=== PATIENT | male | born 1970 | race Caucasian/White ===

== ENCOUNTER 2021-11-19 20:55 | Observation (INO) | payer BC, SELFPAY ==
[2021-11-19] VITALS (7 sets, daily range): BP systolic 145–172; BP diastolic 95–107; PULSE 78–87; RESP 15–17; TEMP 36.6; O2SAT 98–100; BMI 28.0; BMI 27.2
--- NOTE | 2021-11-19 21:20 | EKG12_ITS ---
Test Reason : CHEST PAIN Blood Pressure : / mmHG Vent. Rate : 082 BPM Atrial Rate : 082 BPM P-R Int : 136 ms QRS Dur : 100 ms QT Int : 366 ms P-R-T Axes : 051 033 009 degrees QTc Int : 427 ms Sinus rhythm with Premature atrial complexes Nonspecific ST abnormality Abnormal ECG Confirmed by CAMDEN LAMA, CHA ([id number]), publication editor ANN CHENG ([id number]) on 11/22/2021 10:35:44 AM Referred By: CRYSTAL Confirmed By:CHA HANNAH MD
--- NOTE | 2021-11-19 21:22 | ED.VIS.CHEST ---
HPI History of Present Illness Chief Complaint: Chest Pain Informant: patient and EMS Narrative Narrative: Brought in by EMS for worsening chest tightness burning sensation this evening. Been having intermittent symptoms for the past 5 days. He works with heavy lifting he noticed symptoms would come with just 3-4 times a day lasting 5 to 10 minutes improved with rest. This evening noted some dyspnea no nausea or diaphoresis. States burning sensations down his left arm. 1 pack/day smoker. Is on medicines for glaucoma. He denies hypertension, diabetes, hypercholesterolemia. Denies family history of MIs at a young age. No history of stress test in the past. EMS gave aspirin 180 of Brilinta and gave 1 nitroglycerin he states the nitroglycerin did help with his symptoms. On exam he states symptoms are mildly returning. Prior Similar Symptoms: No PFSH PFSH Medical History Secondary glaucoma Home Medications brimonidine 1 drp LEFT EYE BID 11/19/21 [History Last Taken Unknown] timolol maleate 1 drp LEFT EYE BID 11/19/21 [History Last Taken Unknown] Allergy/AdvReac Type Severity Reaction Status Date / Time No Known Allergies Allergy Verified 11/19/21 20:59 Family History (Updated 11/19/21 @ 23:[address] Ronnie Leija MD) Father Cancer Breast cancer Surgical History Hx of artificial lens replacement Social History Smoking Status: Current every day smoker tobacco type: cigarettes ROS ROS ED Constitutional Constitutional ED: Denies chills, fever(s) or sweats Eyes Eyes: Denies change in vision ENT ENT ED: Denies dysphagia or sore throat Cardiovascular Cardiovascular: Reports chest pain; Denies leg edema, palpitations or racing heartbeat Respiratory/Chest Respiratory/Chest: Reports dyspnea; Denies cough or dyspnea on exertion Gastrointestinal Gastrointestinal: Denies abdominal pain, diarrhea, nausea or vomiting Genitourinary Genitourinary ED: Denies dysuria, hematuria or urinary frequency Musculoskeletal Musculoskeletal: Denies back pain, extremity pain or neck pain Integumentary Denies rash or wounds Neurologic Neurologic: Denies headache(s), paresthesias or weakness EXAM Physical Exam Const Vital Signs: 11/19/21 20:56 11/19/21 21:02 11/19/21 21:24 Temperature 97.9 F Temperature Source Oral Pulse Rate 82 Respiratory Rate 17 Blood Pressure 172/95 H Blood Pressure Mean 120 Pulse Ox 98 Oxygen Delivery Method Room Air Room Air 11/19/21 21:31 11/19/21 22:12 11/19/21 22:25 Temperature 98 F Temperature Source Temporal Pulse Rate 78 80 84 Respiratory Rate 17 15 Blood Pressure 164/107 H 145/102 H 157/97 H Blood Pressure Mean 116 117 Pulse Ox 98 99 Oxygen Delivery Method Room Air Room Air Positive well nourished and well developed General Appearance ED: well developed and NAD HEENT Reports moist mucous membranes normocephalic and atraumatic Eyes PERRL, EOMs intact bilaterally and conjunctivae normal General Eye ED: Yes normal appearance of both eyes Neck no lymphadenopathy and supple General: Negative for tenderness Chest Wall Chest: Negative for tenderness Resp normal respiratory effort and normal air movement Effort and Inspection: symmetric chest movement; Negative for respiratory distress Cardio regular rate, regular rhythm and no murmurs Peripheral Pulses: pulses 2+ throughout GI normal to inspection, nondistended, normoactive bowel sounds and non-tender Palpation: Negative for guarding or rebound tenderness present Back/Spine no CVA tenderness and no thoracic nor lumbar tenderness Extremity normal to inspection General Extremety ED: Negative for edema or tenderness General Extremity: Negative for edema Neuro oriented x3 and no sensory deficits noted Sensorium / Orientation: awake and alert Skin no rashes or lesions noted and no wounds Heart Score History: Highly Suspicious ECG: Nonspecific Repolarization Age: >45 - <65 years Risk Factors: 1 or 2 Risk Factors Troponin: </= Normal Limit Score: 5 MDM MDM MDM Narrative Medical decision making narrative: Patient presenting with concerning story for angina. EKG nonspecific ST changes inferior lateral leads there is no elevations. Nitropaste was placed. He is already given aspirin Brilinta have by EMS. Cardiac work-up negative first troponin at 23. Repeat pending. Chest x-ray reviewed by myself and read by radiology shows no acute process. I spoke with on-call photographic process screen maker Dr. Ritter, would like Lovenox started he will be monitored in hospital for cardoso heart catheterization on Monday if remained stable. Sooner if needed. Patient was updated. Hospitalist Dr. leija contacted and will admit to PCU. Lab Data Attestation: I reviewed the patient's lab results. Labs: Laboratory Results - last 24 hr 11/19/21 11/19/21 11/19/21 21:05 21:05 21:05 WBC 7.6 RBC 5.03 Hgb 15.9 Hct 46.3 MCV 92.0 MCH 31.6 MCHC 34.3 RDW Std Deviation 47.8 H RDW Coeff of Gris 14.1 Plt Count 227 MPV 10.0 Immature Gran % (Auto) 0.300 Neut % (Auto) 61.9 Lymph % (Auto) 28.6 Sunflower % (Auto) 7.5 Eos % (Auto) 1.3 Baso % (Auto) 0.4 Absolute Neuts (auto) 4.7 Absolute Lymphs (auto) 2.16 Nucleated RBC % 0 PT 12.6 INR 1.0 APTT 34.5 Sodium 135 L Potassium 3.9 Chloride 104 Carbon Dioxide 28.0 Anion Gap 3 L BUN 8 Creatinine 0.90 Estim Creat Clear Calc 89.77 Est GFR (MDRD) Af Amer 114 Est GFR (MDRD) Non-Af 94 BUN/Creatinine Ratio 8.9 L Glucose 97 Calcium 9.9 Troponin I High Sens 23 Radiography Chest X-Ray - ED: 1 View, Read by ED Physician and Read by Radiologist Diagnostic Testing: Clinical Impression(s) from Imaging Studies Chest X-Ray 11/19/21 21:25 IMPRESSION: No radiographic evidence of acute cardiopulmonary disease. at 2151 Reported and signed by: Josh Lott MD Electronically Signed: Josh Lott MD at 21:50 EST , EKG Initial EKG: Attestation: I personally reviewed and interpreted this EKG as follows: Comments: Sinus rate of 82, very nonspecific ST depression inferior lateral leads. Minimal no ST elevations. T wave inversion in leads III. Discharge Plan Triage Chief Complaint: Chest Pain ED Provider: Neil Uribe Dx/Rx/DC Orders Clinical Impression: Angina of effort, Chest pain Primary Care Provider: Care Physician,No Primary Disposition Disposition: Home, Self Care Discharge Date/Time: 11/19/21 23:04
--- NOTE | 2021-11-19 21:25 | RAD_ITS ---
EXAM: XR CHEST, 1 VIEW : 1970 CLINICAL INDICATION: chest pain TECHNIQUE: Frontal view of the chest. This report was created using [employer] report generation technology. COMPARISON: None. FINDINGS: LUNGS AND PLEURAL SPACES: Unremarkable. No consolidation or edema. No pneumothorax. No effusion. HEART: Unremarkable. Cardiac silhouette not enlarged. MEDIASTINUM: Central airways and mediastinal contour are unremarkable. BONES/JOINTS: Unremarkable. SOFT TISSUES: Unremarkable. RAD/Chest 1 View (Portable) IMPRESSION: No radiographic evidence of acute cardiopulmonary disease. at 2151 Reported and signed by: Josh Lott MD Electronically Signed: Josh Lott MD at 21:50 EST ,
[2021-11-19 21:27] LABS: Absolute Lymphocyte Count 2.16 X10^3/uL (0.83-4.51); Absolute Neutrophil Count 4.7 X10^3/uL (2.0-7.7); Basophil# 0.03 X10^3/uL; Basophil% 0.4 % (0-1); Eosinophils% 1.3 % (0-5); Hematocrit 46.3 % (40-54); Hemoglobin 15.9 g/dL (13.0-16.5); Lymphocyte # 2.16 X10^3/ul (0.83-4.51); Lymphocyte % 28.6 % (19-41); Mean Corp Hgb Conc 34.3 g/dL (32-36); Mean Corpuscular Hgb 31.6 pg (27.0-32.0); Monocyte# 0.57 X10^3/uL; Monocyte% 7.5 % (0-10); NRBC Flagged by Analyzer 0 % (0-5); Neutrophil # 4.67 X10^3/uL (2.7-7.7); Neutrophil % 61.9 % (47-70); Platelet Count 227 K/mm3 (150-450); RBC Distribution Width CV 14.1 % (11.6-14.6); RBC Distribution Width SD 47.8 fl (35.1-43.9); Red Blood Count 5.03 M/mm3 (4.6-6.2); White Blood Count 7.6 K/mm3 (4.4-11.0)
[2021-11-19] MEDS: Nitroglycerin Oint 1 INCH PACKET TRANSDERM. (21:31)
[2021-11-19 21:35] LABS: Prothrombin Time (Protime)PT. 12.6 SECONDS (11.7-14.9)
[2021-11-19 21:36] LABS: Partial Thromboplast Time 34.5 Seconds (24.1-36.2)
[2021-11-19 21:44] LABS: Anion Gap 3 (5-15); BUN 8 mg/dL (7-18); BUN/Creat Ratio 8.9 RATIO (10-20); Calcium,Total 9.9 mg/dL (8.5-10.1); Chloride 104 mmol/L (98-107); EST Glomerular Filtration Rate 94 mL/min (>60); Est Glom Filt Rate - Afr Amer 114 mL/min (>60); Estimated Creatinine Clearance 89.77 ml/min; Glucose 97 mg/dL (74-106); Potassium 3.9 mmol/L (3.5-5.1); Sodium Level 135 mmol/L (136-145); Troponin-I HS 23 pg/mL (3.0-78.0)
[2021-11-19] MEDS: Enoxaparin 80 MG/0.8 ML Syringe SC (22:13)
--- NOTE | 2021-11-19 23:06 | ECHOCS_ITS ---
Reason For Study: Chest Pain Procedure This was a 2D Doppler, Color Flow transthoracic echocardiogram. Contrast injection was performed. Exam performed portable in patient room. Left Ventricle Normal LV size. Left ventricular systolic function is normal. The estimated ejection fraction is 60 %. Normal diastology for age. No regional wall motion abnormalities noted. Right Ventricle Normal RV size. Normal systolic function. Atria Normal left atrium. Normal right atrium. Mitral Valve Normal mitral valve. Tricuspid Valve Normal tricuspid valve. Aortic Valve Normal aortic valve. Trisinus/trileaflet aortic valve. Pulmonic Valve Normal pulmonic valve. Great Vessels Normal aortic root. The pulmonary artery is normal size. Normal inferior vena cava. Pericardium/Pleural No pericardial effusion. Medication Diluted definity 2ml given slow IV push to enhance endocardial definition. MMode/2D Measurements & Calculations LVIDd: 4.8 cm IVSd: 1.0 cm Ao root diam: 2.8 cm LVIDs: 3.4 cm LVPWd: 0.99 cm RVDd: 2.7 cm FS: 28.1 % LAV(MOD-bp): 24.1 ml LVAd ap4: 27.9 cm2 SV(MOD-sp4): 43.7 ml LAV(MOD-bp) Indexed: 12.5 ml/m2 LVLd ap4: 7.7 cm LAV(MOD-sp2): 27.8 ml EDV(MOD-sp4): 84.0 ml LAV(MOD-sp4): 18.9 ml EDV(sp4-el): 86.2 ml LVAs ap4: 17.7 cm2 LVLs ap4: 6.7 cm ESV(MOD-sp4): 40.3 ml ESV(sp4-el): 39.4 ml EF(MOD-sp4): 52.0 % EF(sp4-el): 54.3 % SV(sp4-el): 46.9 ml LA A4 area: 10.7 cm2 LA dimension(2D): 2.6 cm RA A4 area: 9.8 cm2 Doppler Measurements & Calculations MV E max shayne: 69.8 cm/sec Lat Peak E' Shayne: 10.3 cm/sec Med Peak E' Shayne: 8.6 cm/sec MV A max shayne: 49.8 cm/sec E/E' lat: 6.8 E/E' med: 8.1 MV E/A: 1.4 Ao V2 max: 154.7 cm/sec LV V1 max: 114.4 cm/sec PA V2 max: 78.3 cm/sec Ao max P.6 mmHg LV V1 max P.2 mmHg Ao V2 mean: 109.4 cm/sec Ao mean P.2 mmHg Ao V2 VTI: 27.4 cm ECHO/Echo Complete W/ Contrast Interpretation Summary Normal LV size. Left ventricular systolic function is normal. The estimated ejection fraction is 60 %. Normal diastology for age. Contrast injection was performed. Ordering Physician: Ronnie Leija Performed By: Shelly Crawford, GREGORIO, RVT
--- NOTE | 2021-11-19 23:06 | HP.PCM.HOS_ITS ---
HPI - General General Date of Admission: 11/19/21 HPI Narrative ADRIANA MITCHELL, is a 51 M who presents to the hospital with intermittent chest pain. He states that he would get this substernal chest pressure and pain that would occur with activity and then when he went stop the activity after about 5 to 10 minutes the pain would resolve. He presented to the hospital because it is also now started to have some chest pain at rest. He does not see a doctor and takes no medications other than for glaucoma. In the ER his EKG was nonischemic and troponins were normal. The case was discussed with cardiology who felt that he would be a candidate for heart cath on Monday [facility] Medical History Secondary glaucoma Home Medications brimonidine 1 drp LEFT EYE BID 11/19/21 [History Last Taken Unknown] timolol maleate 1 drp LEFT EYE BID 11/19/21 [History Last Taken Unknown] Allergy/AdvReac Type Severity Reaction Status Date / Time No Known Allergies Allergy Verified 11/19/21 20:59 Family History (Updated 11/19/21 @ 23:[address] Ronnie Leija MD) Father Cancer Breast cancer Surgical History Hx of artificial lens replacement Social History Smoking Status: Current every day smoker tobacco type: cigarettes ROS Constitutional Constitutional: Denies chills, fatigue, fever(s) or malaise Eyes Eyes: Denies blurry vision ENT HEENT: Denies headache(s) or nasal discharge Cardiovascular Cardiovascular: Reports chest pain; Denies dyspnea on exertion or syncope Respiratory/Chest Respiratory/Chest: Denies cough, shortness of breath at rest or shortness of breath with exertion Gastrointestinal Gastrointestinal: Denies constipation, diarrhea, nausea or vomiting Genitourinary Genitourinary: Denies dysuria Neurologic Neurologic: Denies focal weakness, numbness or tremor(s) Psychiatric Psychiatric: Denies anxiety or depression Vital Signs Vital Signs Vital Signs: 11/19/21 20:56 11/19/21 21:02 11/19/21 21:24 Temperature 97.9 F Temperature Source Oral Pulse Rate 82 Respiratory Rate 17 Blood Pressure 172/95 H Blood Pressure Mean 120 Pulse Ox 98 Oxygen Delivery Method Room Air Room Air 11/19/21 21:31 11/19/21 22:12 11/19/21 22:25 Temperature 98 F Temperature Source Temporal Pulse Rate 78 80 84 Respiratory Rate 17 15 Blood Pressure 164/107 H 145/102 H 157/97 H Blood Pressure Mean 116 117 Pulse Ox 98 99 Oxygen Delivery Method Room Air Room Air Weight Weight: 178 lb 12.718 oz Body Mass Index (BMI) 28.0 Physical Exam Const alert, oriented x3 and no apparent distress General Appearance: cooperative HEENT normocephalic and moist oral mucous membranes Eyes PERRL, EOMs intact bilaterally and conjunctivae normal Neck supple and no JVD Resp normal respiratory effort, no retractions, no use of accessory muscles and clear to auscultation bilaterally Auscultation: Negative for crackles, rales, rhonchi or wheezes Cardio regular rate, regular rhythm, S1 normal heart sound, S2 normal heart sound and no murmurs GI soft to palpation, non-tender and non-distended; Negative for hepatosplenomegaly Extremity no clubbing, cyanosis or edema Skin no rashes or lesions noted Neuro no focal motor deficits and no sensory deficits noted Psych affect normal Appearance: appropriate Results Lab / Micro Data Result Diagrams: 11/19/21 21:05 11/19/21 21:05 Labs: Laboratory Results - last 24 hr 11/19/21 21:05: WBC 7.6, RBC 5.03, Hgb 15.9, Hct 46.3, MCV 92.0, MCH 31.6, MCHC 34.3, RDW Std Deviation 47.8 H, RDW Coeff of Gris 14.1, Plt Count 227, MPV 10.0, Immature Gran % (Auto) 0.300, Neut % (Auto) 61.9, Lymph % (Auto) 28.6, [place] % (Auto) 7.5, Eos % (Auto) 1.3, Baso % (Auto) 0.4, Absolute Neuts (auto) 4.7, Absolute Lymphs (auto) 2.16, Nucleated RBC % 0 11/19/21 21:05: Sodium 135 L, Potassium 3.9, Chloride 104, Carbon Dioxide 28.0, Anion Gap 3 L, BUN 8, Creatinine 0.90, Estim Creat Clear Calc 89.77, Est GFR (MDRD) Af Amer 114, Est GFR (MDRD) Non-Af 94, BUN/Creatinine Ratio 8.9 L, Glucose 97, Calcium 9.9, Troponin I High Sens 23 11/19/21 21:05: PT 12.6, INR 1.0, APTT 34.5 Radiology Impression Chest X-Ray 11/19/21 21:25 IMPRESSION: No radiographic evidence of acute cardiopulmonary disease. at 2151 Reported and signed by: Josh Lott MD Electronically Signed: Josh Lott MD at 21:50 EST , Assessment & Plan Assessment/Plan (1) Chest pain: PLAN: 1. Chest pain ?We will start him on Coreg and lisinopril for his blood pressure ?We will start him on Lipitor ?Consult cardiology for heart cath ?Therapeutic Lovenox twice daily ?We will give him a nicotine patch for his tobacco use, he smokes about a pack a day, cessation was discussed ?We will obtain serial troponins and an echo in the morning ?Lipid panel in the morning 2. Glaucoma ?Stable ?Continue with his home meds DVT: Therapeutic Lovenox Charges/Coding Visit Charges OBSV E&M: 34340 Initial observation care L2
[2021-11-19 23:56] LABS: Troponin-I HS 25 pg/mL (3.0-78.0)
[2021-11-20] VITALS (11 sets, daily range): BP systolic 95–122; BP diastolic 62–84; PULSE 65–80; RESP 16–18; TEMP 36.3–36.8; O2SAT 95–98
[2021-11-20 03:41] LABS: Absolute Lymphocyte Count 2.68 X10^3/uL (0.83-4.51); Absolute Neutrophil Count 3.2 X10^3/uL (2.0-7.7); Basophil# 0.04 X10^3/uL; Basophil% 0.6 % (0-1); Eosinophil# 0.15 X10^3/uL; Eosinophils% 2.2 % (0-5); Hematocrit 45.1 % (40-54); Hemoglobin 15.4 g/dL (13.0-16.5); Lymphocyte # 2.68 X10^3/ul (0.83-4.51); Lymphocyte % 39.9 % (19-41); Mean Corp Hgb Conc 34.1 g/dL (32-36); Mean Corpuscular Hgb 31.2 pg (27.0-32.0); Mean Corpuscular Volume 91.5 fL (80-94); Mean Platelet Vol. 9.7 fl (6.2-12.0); Monocyte# 0.59 X10^3/uL; Monocyte% 8.8 % (0-10); NRBC Flagged by Analyzer 0 % (0-5); Neutrophil # 3.24 X10^3/uL (2.7-7.7); Neutrophil % 48.4 % (47-70); Platelet Count 224 K/mm3 (150-450); RBC Distribution Width SD 47.5 fl (35.1-43.9); Red Blood Count 4.93 M/mm3 (4.6-6.2); White Blood Count 6.7 K/mm3 (4.4-11.0)
[2021-11-20 04:01] LABS: Troponin-I HS 27 pg/mL (3.0-78.0)
[2021-11-20 05:37] LABS: Anion Gap 5 (5-15); BUN 10 mg/dL (7-18); BUN/Creat Ratio 12.3 RATIO (10-20); Calcium,Total 8.8 mg/dL (8.5-10.1); Chloride 106 mmol/L (98-107); Cholesterol 181 mg/dL (200); Creatinine, Serum 0.81 mg/dL (0.70-1.30); EST Glomerular Filtration Rate 106 mL/min (>60); Est Glom Filt Rate - Afr Amer 129 mL/min (>60); Estimated Creatinine Clearance 99.74 ml/min; Glucose 112 mg/dL (74-106); High Density Lipoprotein 44 mg/dL; Potassium 3.7 mmol/L (3.5-5.1); Sodium Level 137 mmol/L (136-145); Triglycerides 164 mg/dL; Very Low Density Lipoprotein 33 mg/dL (5-40)
[2021-11-20] MEDS: BRIMONIDINE 0.2% 5ML BOTTLE 1 DRP LEFT EYE ×2 (08:45→22:49)
[2021-11-20] MEDS: Carvedilol 3.125 MG TABLET PO ×2 (08:45→22:51)
[2021-11-20] MEDS: Lisinopril 5 MG Tablet PO (08:45)
[2021-11-20] MEDS: Timolol 0.5% 5ML OPTH.BTL 1 DRP LEFT EYE ×2 (08:45→22:49)
[2021-11-20] MEDS: Enoxaparin 80 MG/0.8 ML Syringe SC ×2 (08:45→22:51)
--- NOTE | 2021-11-20 08:55 | PCM.CONS.C ---
Assessment & Plan Assessment/Plan (1) Chest pain: PLAN: Patient presents with chest discomfort. It is suggestive of new onset angina with crescendo pattern. Though his cardiac enzymes are negative I am concerned about the above and would suggest that we pursue a left heart catheterization. Depending on the findings further recommendations will be made. In the meantime we will continue aspirin Start statin Low-dose beta-shania The risk benefits alternatives been explained to him he understands and agrees to proceed. HPI Consult Data Date of Consult: 11/20/21 HPI Narrative HPI Narrative: ADRIANA MITCHELL, is a 51 M who presents to the emergency room with complaints of chest discomfort described as a heaviness. He says that it occurred with activity and went away with rest. There was no dizziness or nausea or diaphoresis associated with it. There was however some tingling noted of the left arm. He presented to the emergency room was evaluated his initial cardiac enzymes were noted to be normal. Cardiology was called for further evaluation and management. He has been pain-free since being admitted. [facility] Medical History Secondary glaucoma Home Medications brimonidine 1 drp LEFT EYE BID 11/19/21 [History Last Taken Unknown] timolol maleate 1 drp LEFT EYE BID 11/19/21 [History Last Taken Unknown] Allergy/AdvReac Type Severity Reaction Status Date / Time No Known Allergies Allergy Verified 11/19/21 20:59 Family History Father Cancer Breast cancer Surgical History Hx of artificial lens replacement Social History Smoking Status: Current every day smoker tobacco type: cigarettes ROS Constitutional Constitutional: Denies fever(s) or weight loss Eyes Eyes: Reports systems reviewed and no addt'l complaints, except as documented ENT HEENT: Reports systems reviewed and no addt'l complaints, except as documented Cardiovascular Cardiovascular: Denies chest pain at rest, chest pain with activity, dyspnea at rest, dyspnea on exertion, edema, palpitations or paroxysmal nocturnal dyspnea Respiratory/Chest Respiratory/Chest: Denies dyspnea on exertion, productive cough, shortness of breath at rest or shortness of breath with exertion Gastrointestinal Gastrointestinal: Denies change in bowel habits, nausea, vomiting or weight changes Genitourinary Genitourinary: Denies difficulty urinating Musculoskeletal Musculoskeletal: Denies joint stiffness or muscle weakness Integumentary Integumentary: Denies lesions Neurologic Neurologic: Denies dizziness or syncope Psychiatric Psychiatric: Denies anxiety Endocrine Endocrinology: Denies excessive sweating or fatigue Hematologic/Lymphatic Hematologic/Lymphatic: Denies anemia Allergic/Immunologic Allergic/Immunologic: Denies seasonal rhinorrhea Physical Exam Const alert, oriented x3 and no apparent distress General Appearance: cooperative HEENT hearing grossly normal bilaterally Head and Scalp: atraumatic Eyes EOMs intact bilaterally Neck General: normal visual inspection Chest inspection of chest normal and palpation of chest normal Resp normal respiratory effort Auscultation: clear to auscultation bilaterally Cardio regular rate, regular rhythm, S1 normal heart sound and S2 normal heart sound Jugular Venous Distention: JVD GI normal to inspection, nondistended, normoactive bowel sounds Extremity normal capillary refill and no pedal edema Peripheral Pulses: Yes pulses 2+ throughout and femoral pulses present Skin no rashes or lesions noted Neuro oriented x3 and CN's II-XII intact bilaterally Psych Appearance: grossly normal and appropriate Risk Stratification Risk Stratification Applicable: Yes Age >/= 65: No >/= 3 CAD Risk Factors (HTN, HLD, DM, family hx of CAD, or current smoker): No Aspirin Use in the Past 7 Days: No Severe Angina (>/= episodes in 24 hours): No EKG ST Changes >/= 0.5mm: No Positive Cardiac Marker: No PHILIP Risk Stratification Score: 0 PHILIP % Risk: 5% Risk Objective Data Vital Signs: Vital Signs Temp Pulse Resp BP Pulse Ox 98.2 F 80 16 122/79 H 96 11/20/21 08:42 11/20/21 08:42 11/20/21 08:42 11/20/21 08:42 11/20/21 08:42 Oxygen Delivery Method Room Air Weight: 174 lb 2.643 oz Body Mass Index (BMI) 27.2 Lab / Micro Data Result Diagrams: 11/20/21 03:34 11/20/21 03:34 Labs: Laboratory Results - last 24 hr 11/19/21 21:05: WBC 7.6, RBC 5.03, Hgb 15.9, Hct 46.3, MCV 92.0, MCH 31.6, MCHC 34.3, RDW Std Deviation 47.8 H, RDW Coeff of Gris 14.1, Plt Count 227, MPV 10.0, Immature Gran % (Auto) 0.300, Neut % (Auto) 61.9, Lymph % (Auto) 28.6, [place] % (Auto) 7.5, Eos % (Auto) 1.3, Baso % (Auto) 0.4, Absolute Neuts (auto) 4.7, Absolute Lymphs (auto) 2.16, Nucleated RBC % 0 11/19/21 21:05: Sodium 135 L, Potassium 3.9, Chloride 104, Carbon Dioxide 28.0, Anion Gap 3 L, BUN 8, Creatinine 0.90, Estim Creat Clear Calc 89.77, Est GFR (MDRD) Af Amer 114, Est GFR (MDRD) Non-Af 94, BUN/Creatinine Ratio 8.9 L, Glucose 97, Calcium 9.9, Troponin I High Sens 23 11/19/21 21:05: PT 12.6, INR 1.0, APTT 34.5 11/19/21 23:20: Troponin I High Sens 25 11/20/21 03:34: WBC 6.7, RBC 4.93, Hgb 15.4, Hct 45.1, MCV 91.5, MCH 31.2, MCHC 34.1, RDW Std Deviation 47.5 H, RDW Coeff of Gris 14.0, Plt Count 224, MPV 9.7, Immature Gran % (Auto) 0.100, Neut % (Auto) 48.4, Lymph % (Auto) 39.9, [place] % (Auto) 8.8, Eos % (Auto) 2.2, Baso % (Auto) 0.6, Absolute Neuts (auto) 3.2, Absolute Lymphs (auto) 2.68, Nucleated RBC % 0 11/20/21 03:34: Sodium 137, Potassium 3.7, Chloride 106, Carbon Dioxide 26.0, Anion Gap 5, BUN 10, Creatinine 0.81, Estim Creat Clear Calc 99.74, Est GFR (MDRD) Af Amer 129, Est GFR (MDRD) Non-Af 106, BUN/Creatinine Ratio 12.3, Glucose 112 H, Calcium 8.8, Triglycerides 164, Cholesterol 181, LDL Cholesterol 104, VLDL Cholesterol 33, HDL Cholesterol 44 11/20/21 03:34: Troponin I High Sens 27 Cardiology Labs/Tests 11/19/21 21:05: WBC 7.6, RBC 5.03, Hgb 15.9, Hct 46.3, MCV 92.0, MCH 31.6, MCHC 34.3, Plt Count 227, MPV 10.0, Immature Gran % (Auto) 0.300, Neut % (Auto) 61.9, Lymph % (Auto) 28.6, [place] % (Auto) 7.5, Eos % (Auto) 1.3, Baso % (Auto) 0.4, Absolute Neuts (auto) 4.7, Nucleated RBC % 0 11/19/21 21:05: Sodium 135 L, Potassium 3.9, Chloride 104, Carbon Dioxide 28.0, Anion Gap 3 L, BUN 8, Creatinine 0.90, Est GFR (MDRD) Af Amer 114, Est GFR (MDRD) Non-Af 94, BUN/Creatinine Ratio 8.9 L, Glucose 97, Calcium 9.9 11/19/21 21:05: PT 12.6, INR 1.0, APTT 34.5 11/20/21 03:34: WBC 6.7, RBC 4.93, Hgb 15.4, Hct 45.1, MCV 91.5, MCH 31.2, MCHC 34.1, Plt Count 224, MPV 9.7, Immature Gran % (Auto) 0.100, Neut % (Auto) 48.4, Lymph % (Auto) 39.9, [place] % (Auto) 8.8, Eos % (Auto) 2.2, Baso % (Auto) 0.6, Absolute Neuts (auto) 3.2, Nucleated RBC % 0 11/20/21 03:34: Sodium 137, Potassium 3.7, Chloride 106, Carbon Dioxide 26.0, Anion Gap 5, BUN 10, Creatinine 0.81, Est GFR (MDRD) Af Amer 129, Est GFR (MDRD) Non-Af 106, BUN/Creatinine Ratio 12.3, Glucose 112 H, Calcium 8.8, Triglycerides 164, Cholesterol 181, LDL Cholesterol 104, VLDL Cholesterol 33, HDL Cholesterol 44 Rhythm: EKG: ECHO: Stress Test: Cardiac Cath: PCI: CT Surgery: Holter monitor: EPS: PPM: CXR: Chest CT Scan: Radiography Diagnostic Testing: Radiology Impression Chest X-Ray 11/19/21 21:25 IMPRESSION: No radiographic evidence of acute cardiopulmonary disease. at 2151 Reported and signed by: Josh Lott MD Electronically Signed: Josh Lott MD at 21:50 EST ,
[2021-11-20] MEDS: Nitroglycerin (INPATIENT USE) 0.4 MG TAB.SUBL SL (13:20)
--- NOTE | 2021-11-20 13:21 | EKG12_ITS ---
Test Reason : AM EKG Blood Pressure : / mmHG Vent. Rate : 057 BPM Atrial Rate : 057 BPM P-R Int : 140 ms QRS Dur : 094 ms QT Int : 400 ms P-R-T Axes : 055 046 011 degrees QTc Int : 389 ms Sinus bradycardia Otherwise normal ECG When compared with ECG of 20-NOV-2021 13:23, MANUAL COMPARISON REQUIRED, DATA IS UNCONFIRMED Confirmed by CAMDEN LAMA, CHA ([id number]), editor dictionary ANN CHENG ([id number]) on 11/22/2021 2:25:56 PM Referred By: ROSALIE Confirmed By:CHA HANNAH MD
--- NOTE | 2021-11-20 15:49 | CASEMGMT ---
According to [facility] website, the following tertiary facilities are in network: [facility], [place], [facility], [facility], [facility], [facility] and .
--- NOTE | 2021-11-20 18:47 | PN.HOSP_ITS ---
Subjective Subjective Patient was seen and examined today, I talked with cardiology about his care, patient has no complaints of any chest pain or shortness of breath at this time. Objective Data Objective Data Vital Signs: Vital Signs Temp Pulse Resp BP Pulse Ox 97.4 F L 69 16 122/84 H 98 11/20/21 17:10 11/20/21 17:10 11/20/21 17:10 11/20/21 17:10 11/20/21 17:10 Oxygen Flow Rate (L/min) 2 Oxygen Delivery Method Room Air Weight: 79 kg Body Mass Index (BMI) 27.2 Intake & Output: Intake and Output for Last 24 Hours 11/18/21 11/19/21 11/20/21 23:59 23:59 23:59 Intake Total 860 / 860 Balance 860 / 860 Lab / Micro Data Result Diagrams: 11/20/21 03:34 11/20/21 03:34 Labs: Laboratory Results - last 24 hr 11/19/21 21:05: WBC 7.6, RBC 5.03, Hgb 15.9, Hct 46.3, MCV 92.0, MCH 31.6, MCHC 34.3, RDW Std Deviation 47.8 H, RDW Coeff of Rgis 14.1, Plt Count 227, MPV 10.0, Immature Gran % (Auto) 0.300, Neut % (Auto) 61.9, Lymph % (Auto) 28.6, Arthur % (Auto) 7.5, Eos % (Auto) 1.3, Baso % (Auto) 0.4, Absolute Neuts (auto) 4.7, Absolute Lymphs (auto) 2.16, Nucleated RBC % 0 11/19/21 21:05: Sodium 135 L, Potassium 3.9, Chloride 104, Carbon Dioxide 28.0, Anion Gap 3 L, BUN 8, Creatinine 0.90, Estim Creat Clear Calc 89.77, Est GFR (MDRD) Af Amer 114, Est GFR (MDRD) Non-Af 94, BUN/Creatinine Ratio 8.9 L, Glucose 97, Calcium 9.9, Troponin I High Sens 23 11/19/21 21:05: PT 12.6, INR 1.0, APTT 34.5 11/19/21 23:20: Troponin I High Sens 25 11/20/21 03:34: WBC 6.7, RBC 4.93, Hgb 15.4, Hct 45.1, MCV 91.5, MCH 31.2, MCHC 34.1, RDW Std Deviation 47.5 H, RDW Coeff of Gris 14.0, Plt Count 224, MPV 9.7, Immature Gran % (Auto) 0.100, Neut % (Auto) 48.4, Lymph % (Auto) 39.9, Arthur % (Auto) 8.8, Eos % (Auto) 2.2, Baso % (Auto) 0.6, Absolute Neuts (auto) 3.2, Absolute Lymphs (auto) 2.68, Nucleated RBC % 0 11/20/21 03:34: Sodium 137, Potassium 3.7, Chloride 106, Carbon Dioxide 26.0, Anion Gap 5, BUN 10, Creatinine 0.81, Estim Creat Clear Calc 99.74, Est GFR (MDRD) Af Amer 129, Est GFR (MDRD) Non-Af 106, BUN/Creatinine Ratio 12.3, Glucose 112 H, Calcium 8.8, Triglycerides 164, Cholesterol 181, LDL Cholesterol 104, VLDL Cholesterol 33, HDL Cholesterol 44 11/20/21 03:34: Troponin I High Sens 27 Radiography Diagnostic Testing: Radiology Impression Chest X-Ray 11/19/21 21:25 IMPRESSION: No radiographic evidence of acute cardiopulmonary disease. at 2151 Reported and signed by: Josh Lott MD Electronically Signed: Josh Lott MD at 21:50 EST , Echocardiogram 11/19/21 23:06 Interpretation Summary Normal LV size. Left ventricular systolic function is normal. The estimated ejection fraction is 60 %. Normal diastology for age. Contrast injection was performed. Ordering Physician: Ronnie Leija Performed By: Shelly Crawford, GREGORIO, RVT Physical Exam Const alert, oriented x3, no apparent distress and healthy appearing General Appearance: cooperative, well kempt and well developed Orientation / Consciousness: awake, oriented to person, oriented to place and oriented to time HEENT normocephalic and moist oral mucous membranes Eyes PERRL, EOMs intact bilaterally and conjunctivae normal Neck nuchal rigidity, supple, no JVD and thyroid normal General: trachea midline Resp normal respiratory effort and clear to auscultation bilaterally Auscultation: Negative for rales, rhonchi or wheezes Cardio regular rate, regular rhythm, S1 normal heart sound, S2 normal heart sound, no murmurs, no rub and no gallops GI normal to inspection, nondistended, normoactive bowel sounds, soft to palpation, non-tender and non-distended Extremity no clubbing, cyanosis or edema Skin no rashes or lesions noted General Skin Exam: no breakdown Neuro oriented x3, CN's II-XII intact bilaterally, no focal motor deficits and no sensory deficits noted Sensorium / Orientation: awake and alert Speech: speech normal Psych affect normal Assessment & Plan Assessment/Plan (1) Chest pain: PLAN: 1. Chest pain-patient remains on a beta-shania, a statin, full dose Lovenox for anticoagulation, and aspirin. Echocardiogram today showed an EF of 60%, no valvular disease was noted to be present. Patient will undergo cardiac cath eterization on Monday. 2. Glaucoma ?Stable ?Continue with his home meds Charges/Coding Visit Charges OBSV E&M: 62599 Subsequent observation care L2
[2021-11-20] MEDS: Atorvastatin Calcium 40 MG Tablet PO (22:51)
[2021-11-21] VITALS (9 sets, daily range): BP systolic 97–112; BP diastolic 58–69; PULSE 60–74; RESP 16; TEMP 36.4–36.7; O2SAT 96–100
[2021-11-21] MEDS: Carvedilol 3.125 MG TABLET PO ×2 (08:07→22:15)
[2021-11-21] MEDS: Lisinopril 5 MG Tablet PO (08:07)
[2021-11-21] MEDS: BRIMONIDINE 0.2% 5ML BOTTLE 1 DRP LEFT EYE ×2 (08:07→22:15)
[2021-11-21] MEDS: Timolol 0.5% 5ML OPTH.BTL 1 DRP LEFT EYE ×2 (08:07→22:15)
[2021-11-21] MEDS: Enoxaparin 80 MG/0.8 ML Syringe SC ×2 (08:08→22:15)
--- NOTE | 2021-11-21 10:13 | PN.CARD_ITS ---
Subjective Subjective Patient seen and evaluated. Appears to be stable at this time. No complaints Objective Data Vital Signs: Vital Signs Temp Pulse Resp BP Pulse Ox 97.7 F L 70 16 112/68 100 11/21/21 08:05 11/21/21 08:05 11/21/21 08:05 11/21/21 08:05 11/21/21 08:05 Oxygen Flow Rate (L/min) 2 Oxygen Delivery Method Nasal Cannula Weight: 174 lb 2.643 oz Body Mass Index (BMI) 27.2 Intake & Output: Intake and Output for Last 24 Hours 11/19/21 11/20/21 11/21/21 23:59 23:59 23:59 Intake Total 1010 / 1010 200 / 200 Balance 1010 / 1010 200 / 200 Lab / Micro Data Result Diagrams: 11/20/21 03:34 11/20/21 03:34 Cardiology Labs/Tests Rhythm: EKG: ECHO: Stress Test: Cardiac Cath: PCI: CT Surgery: Holter monitor: EPS: PPM: CXR: Chest CT Scan: Radiography Diagnostic Testing: Radiology Impression Echocardiogram 11/19/21 23:06 Interpretation Summary Normal LV size. Left ventricular systolic function is normal. The estimated ejection fraction is 60 %. Normal diastology for age. Contrast injection was performed. Ordering Physician: Ronnie Leija Performed By: Shelly Crawford, GREGORIO, RVT Physical Exam Const alert, oriented x3 and no apparent distress General Appearance: cooperative HEENT hearing grossly normal bilaterally Head and Scalp: atraumatic Eyes EOMs intact bilaterally Neck General: normal visual inspection Chest inspection of chest normal and palpation of chest normal Resp normal respiratory effort Auscultation: clear to auscultation bilaterally Cardio regular rate, regular rhythm, S1 normal heart sound and S2 normal heart sound Jugular Venous Distention: JVD GI normal to inspection, nondistended, normoactive bowel sounds Extremity normal capillary refill and no pedal edema Peripheral Pulses: Yes pulses 2+ throughout and femoral pulses present Skin no rashes or lesions noted Neuro oriented x3 and CN's II-XII intact bilaterally Psych Appearance: grossly normal and appropriate Assessment & Plan Assessment/Plan (1) Chest pain: PLAN: Patient presents with chest discomfort. It is suggestive of new onset angina with crescendo pattern. Though his cardiac enzymes are negative I am concerned about the above and would suggest that we pursue a left heart catheterization. Depending on the findings further recommendations will be made. In the meantime we will continue aspirin Start statin Low-dose beta-shania The risk benefits alternatives been explained to him he understands and agrees to proceed.
[2021-11-21] MEDS: 0.9% Saline Lock 10 ML Syringe IV (14:14)
--- NOTE | 2021-11-21 15:17 | PN.HOSP_ITS ---
Subjective Subjective Patient was seen and examined today, his was in the room at the time my examination, he complains of some nonspecific chest discomfort which he attributes to indigestion at this time, he has no pain down his arms or up into his neck, nursing put him on oxygen because he felt odd. I asked the patient to notify nursing if his discomfort did not go away. Objective Data Objective Data Vital Signs: Vital Signs Temp Pulse Resp BP Pulse Ox 98.1 F 64 16 99/65 99 11/21/21 14:12 11/21/21 14:12 11/21/21 14:12 11/21/21 14:12 11/21/21 14:12 Oxygen Flow Rate (L/min) 2 Oxygen Delivery Method Nasal Cannula Weight: 79 kg Body Mass Index (BMI) 27.2 Intake & Output: Intake and Output for Last 24 Hours 11/19/21 11/20/21 11/21/21 23:59 23:59 23:59 Intake Total 1010 / 1010 620 / 620 Balance 1010 / 1010 620 / 620 Lab / Micro Data Result Diagrams: 11/20/21 03:34 11/20/21 03:34 Radiography Diagnostic Testing: Radiology Impression Echocardiogram 11/19/21 23:06 Interpretation Summary Normal LV size. Left ventricular systolic function is normal. The estimated ejection fraction is 60 %. Normal diastology for age. Contrast injection was performed. ____ Ordering Physician: Ronnie Leija Performed By: Shelly Crawford, GREGORIO, RVT Physical Exam Const alert, oriented x3, no apparent distress and healthy appearing General Appearance: cooperative, well kempt and well developed Orientation / Consciousness: awake, oriented to person, oriented to place and oriented to time HEENT normocephalic and moist oral mucous membranes Eyes PERRL, EOMs intact bilaterally and conjunctivae normal Neck nuchal rigidity, supple, no JVD and thyroid normal General: trachea midline Resp normal respiratory effort, no retractions, no use of accessory muscles and clear to auscultation bilaterally Auscultation: Negative for rales, rhonchi or wheezes Cardio regular rate, regular rhythm, S1 normal heart sound, S2 normal heart sound, no murmurs, no rub and no gallops GI normal to inspection, nondistended, normoactive bowel sounds, soft to palpation, non-tender and non-distended Extremity no clubbing, cyanosis or edema Skin no rashes or lesions noted General Skin Exam: no breakdown Neuro oriented x3, CN's II-XII intact bilaterally, no focal motor deficits and no sensory deficits noted Sensorium / Orientation: awake and alert Speech: speech normal Psych affect normal Assessment & Plan Assessment/Plan (1) Chest pain: PLAN: 1. Chest pain-patient remains on a beta-shania, a statin, full dose Lovenox for anticoagulation, and aspirin. Echocardiogram today showed an EF of 60%, no valvular disease was noted to be present. Patient will undergo cardiac catheterization on Monday. I am unsure if the patient is complaining about anginal pain today or whether it is mostly gastrointestinal, again he will notify nursing if the discomfort does not go away. 2. Glaucoma ?Stable ?Continue with his home meds Charges/Coding Visit Charges OBSV E&M: 35841 Subsequent observation care L2
[2021-11-21] MEDS: Atorvastatin Calcium 40 MG Tablet PO (22:15)
[2021-11-22] VITALS (15 sets, daily range): BP systolic 79–101; BP diastolic 54–77; PULSE 54–68; RESP 16; TEMP 36.2–36.4; O2SAT 96–99
--- NOTE | 2021-11-22 00:01 | NURSING ---
Nicotine patch removed midnight 11/22.
[2021-11-22] MEDS: Carvedilol 3.125 MG TABLET PO (05:31)
[2021-11-22] MEDS: Lisinopril 5 MG Tablet PO (05:31)
[2021-11-22] MEDS: 0.9% Saline Lock 10 ML Syringe IV (05:36)
--- NOTE | 2021-11-22 05:55 | EKG12_ITS ---
Test Reason : CP Blood Pressure : / mmHG Vent. Rate : 075 BPM Atrial Rate : 075 BPM P-R Int : 134 ms QRS Dur : 096 ms QT Int : 376 ms P-R-T Axes : 056 036 010 degrees QTc Int : 419 ms Normal sinus rhythm ST abnormality, possible digitalis effect Abnormal ECG When compared with ECG of 19-NOV-2021 20:59, MANUAL COMPARISON REQUIRED, DATA IS UNCONFIRMED Confirmed by CAMDEN LAMA, CHA ([id number]), content editor ANN CHENG ([id number]) on 11/22/2021 2:26:55 PM Referred By: ROSALIE Confirmed By:CHA HANNAH MD
--- NOTE | 2021-11-22 08:24 | PN.CARD_ITS ---
Subjective Subjective Patient seen and evaluated. Underwent cardiac catheterization today Objective Data Vital Signs: Vital Signs Temp Pulse Resp BP Pulse Ox 97.5 F L 62 16 101/77 98 11/22/21 05:28 11/22/21 06:46 11/22/21 05:28 11/22/21 05:28 11/22/21 05:28 Oxygen Flow Rate (L/min) 2 Oxygen Delivery Method Room Air Weight: 174 lb 2.643 oz Body Mass Index (BMI) 27.2 Intake & Output: Intake and Output for Last 24 Hours 11/20/21 11/21/21 11/22/21 23:59 23:59 23:59 Intake Total 1010 / 1010 1240 / 1740 510 / 510 Balance 1010 / 1010 1240 / 1740 510 / 510 Lab / Micro Data Result Diagrams: 11/20/21 03:34 11/20/21 03:34 Cardiology Labs/Tests Rhythm: EKG: ECHO: Stress Test: Cardiac Cath: PCI: CT Surgery: Holter monitor: EPS: PPM: CXR: Chest CT Scan: Physical Exam Const alert, oriented x3 and no apparent distress General Appearance: cooperative HEENT hearing grossly normal bilaterally Head and Scalp: atraumatic Eyes EOMs intact bilaterally Neck General: normal visual inspection Chest inspection of chest normal and palpation of chest normal Resp normal respiratory effort Auscultation: clear to auscultation bilaterally Cardio regular rate, regular rhythm, S1 normal heart sound and S2 normal heart sound Jugular Venous Distention: JVD GI normal to inspection, nondistended, normoactive bowel sounds Extremity normal capillary refill and no pedal edema Peripheral Pulses: Yes pulses 2+ throughout and femoral pulses present Skin no rashes or lesions noted Neuro oriented x3 and CN's II-XII intact bilaterally Psych Appearance: grossly normal and appropriate Assessment & Plan Assessment/Plan (1) Chest pain: PLAN: Patient presents with chest discomfort. It is suggestive of new onset angina with crescendo pattern. * He underwent cardiac catheterization which demonstrated the following * 50% ostial left main coronary artery stenosis with dampening * Left anterior descending artery with mild diffuse disease * Left circumflex artery with proximal total occlusion and [id number] collaterals * Dominant right coronary artery with mid segment total occlusion filling via collaterals * Preserved left ventricular systolic function * Based on the above angiographic findings I would recommend coronary artery bypass surgery. Patient to be transferred to a tertiary care facility for the above. * * Thank you for allowing me to participate in the care of your patient. Please don't hesitate to call if any issues arise.
--- NOTE | 2021-11-22 08:32 | CL.D_ITS ---
Patient Name: ADRIANA MITCHELL Study Date: 11/22/2021 Performing: Thom Ritter MD Ht: 67 inches 170 cm : 1970 Wt: 174.4 lbs 79 kg Age: 51 Gender: male BSA: 1.91 PROCEDURE(S) PERFORMED DC01-([id number])LHC/COR/LV CLINICAL PROFILE AND INDICATIONS Indications: Worsening Angina Heart Failure: None Stress/Imaging Stress/Image Study Performed: No CAD Presentations: Unstable angina. CONCLUSIONS Severe triple-vessel disease including a left main coronary stenosis, totally occluded left circumfle x artery and totally occluded right coronary artery with [id number] collaterals. Preserved ejecti on fraction. RECOMMENDATIONS Surgery consult for coronary revascularization DESCRIPTION OF PROCEDURE The patient arrived to the procedure lab. The risks and benefits of the procedure as well as a full d escription of our services here and current unavailability of surgical backup were fully explained to the patient and/or their significant other prior to the catheterization. The Timeout was completed, verifying the correct patient and procedure. The patient's procedural site was prepped and draped in the usual fashion. Local anesthetic was given subcutaneously to right radial region with Lidocaine 2% . Using a modified Seldinger technique, arterial access was obtained via the right radial artery, a 6 Fr sheath was inserted. Left Coronary Artery selective angiography was performed in multiple views u sing a 5 Fr. 4.0 Rolla catheter. Right Coronary Artery selective angiography was then performed in mu ltiple views using a 5 Fr. 4.0 Rolla catheter. Left Ventriculography was performed in SHELLEY projection using a 5 Fr. Pigtail catheter. LV to AO pullback pressures were then recorded.The arterial sheath was pulled and a TR Band was applied for hemostasis w/ 10ml air CORONARY ANGIOGRAPHY DOMINANCE: Right Dominant LEFT HEART ASSESSMENT Left Ventricular Ejection Fraction: by LV Gram 60 % Normal LV wall motion Normal Left Ventricular systolic function LEFT MAIN: Dampening of pressure with 50 to 60% ostial stenosis LEFT ANTERIOR DESCENDING ARTERY: Mild calcification, Mild luminal irregularities less than 30% CIRCUMFLEX ARTERY: The left circumflex artery has a proximal ectatic zone and then is totally occlude d after the first obtuse marginal branch which is also totally occluded and fills via ghost collatera ls. Left to right collaterals are also noted. RIGHT CORONARY ARTERY: Occluded in the midsegment with [id number] collaterals. COMPLICATIONS No Complications PROCEDURE MEDICATIONS Versed 1 mg IV Fentanyl 50 mcg IV Versed 1 mg IV Oxygen: 2 L/min via nasal cannula Aspirin (325mg) 1 Tabs PO @ 11/22/2021 07:56:23 Heparin given IA 11/22/2021 08:10:42 Verapamil 2.5mg, Ntg 100mcgs, 3000 units of Heparin given IA 11/22/2021 08:10:42 IV Bolus: .9 NaCl 500ml total 11/22/2021 08:12:20 SUMMARY OF HEMODYNAMIC DATA Time AIR REST ECG 07:52:09 AO 79/46 (66) SA 08:12:05 LV 78/9, 13 08:17:17 LV 80/8, 17 08:17:24 LV 74/11, 15 08:18:10 LV 75/12, 17 08:18:17 LVp 80/11, 16 08:18:24 AOp 0/0 (66) 08:18:29 08:28:43 Signed By Thom Ritter MD On 11/22/2021 08:31:34 Thom Ritter MD
[2021-11-22] MEDS: 0.9% Normal Saline 1,000 ML 100 ML IV (08:45)
[2021-11-22] MEDS: BRIMONIDINE 0.2% 5ML BOTTLE 1 DRP LEFT EYE (08:46)
[2021-11-22] MEDS: Timolol 0.5% 5ML OPTH.BTL 1 DRP LEFT EYE (08:49)
--- NOTE | 2021-11-22 10:46 | PCM.DC.SUM ---
Providers Date of Admission: 11/19/21 Date of Discharge: 11/22/21 Primary Care Physician: Esther Primary Care Phys Consultations 11/19/21 23:06 Consult: Cardiology Routine Consulting Provider: Thom Ritter Reason for Consult: Chest pain EMERGENT Consult: No MD Notified: Yes Date Notified: 11/19/21 Time Notified: 23:04 Method of Notification: Verbal Reason For Visit: CHEST PAIN RULE OUT Diagnosis Discharge Diagnosis (1) Chest pain: Status: Acute Code(s): R07.9 - Chest pain, unspecified Plan: 1. Unstable angina secondary to occlusive coronary artery [id number] #2 triple-vessel occlusive coronary artery disease #3 glaucoma #4 hyperlipidemia Medications at Discharge Home Medications brimonidine 1 drp LEFT EYE BID 11/19/21 timolol maleate 1 drp LEFT EYE BID 11/19/21 Hospital Course Operations None Procedures 2-D Echocardiogram and Cardiac catheterization Summary of Care Provided Minutes Spent on Discharge: 31 Hospital Course: This 51-year-old white male was seen in the emergency room at [facility] with complaints of substernal chest pain brought on by exertion and relieved by rest. Work-up in the emergency room included a chest x-ray which was unremarkable, EKG was obtained and did not show any ischemic changes, patient's troponin was normal. Patient was placed in observation status on PCU, enzymes were cycled and remained normal, he was seen in consultation by cardiology who felt that the patient warranted a cardiac catheterization. On 11/22/2021, patient underwent a cardiac catheterization which showed triple-vessel coronary disease, it was felt necessary to transfer the patient to a tertiary facility to evaluate for possible cardiac bypass. Patient consented, he was transferred to [facility] for further care on 11/22/2021. On 11/22/2021, patient was seen and examined: On examination he appeared in good health and spirits. Vital signs as documented. Skin warm and dry and without overt rashes. Neck without JVD, neck was supple, trachea midline, thyroid was normal. Lungs clear bilaterally, normal air movement was noted. Heart exam notable for regular rhythm, normal sounds and absence of murmurs, rubs or gallops. Abdomen unremarkable and without evidence of organomegaly, masses, or abdominal aortic enlargement. Bowel sounds are present, abdomen is not distended. Extremities nonedematous, no cyanosis was noted, no clubbing was noted. Neuro: Cranial nerves II through XII are grossly intact, no focal motor deficits were noted, sensation to light touch and pinprick intact, motor exam 5/5 throughout. Psych: Patient is alert and oriented x3, he does not appear anxious or depressed, he does not appear agitated. Patient appears stable for discharge on 11/22/2021 to [facility] for further care. Weight / BMI Weight Weight: 79 kg Body Mass Index (BMI) 27.2 ABG / Lab / Microbiology Data Result Diagrams: 11/20/21 03:34 11/20/21 03:34 Meaningful Use Info Meaningful Use Diagnoses (Choose all that apply): None applicable Discharge Plan Admission Admit Date/Time: 11/19/21 23:02 Attending Provider: Marcus Wiggins Primary Care Provider: Care Physician,No Primary Consulting Providers: Thom Ritter Discharge Orders/Prescriptions Prescriptions: No Action brimonidine 0.2 % drops 1 drp LEFT EYE BID RF: 0 timolol maleate 0.5 % drops 1 drp LEFT EYE BID RF: 0 Referrals / Follow Up: Care Physician,No Primary [Primary Care Provider] - Disposition Discharge Orders: Discharge Patient (Routine); Ordered 11/22/21 Ordered By: Dr. Marcus Wiggins Charges/Coding Visit Charges OBSV E&M: 33968 Observation care discharge
[2021-11-22] MEDS: Enoxaparin 80 MG/0.8 ML Syringe SC (11:12)
== END 2021-11-22 13:39 | disposition short-term general hospital (02) ==
LOC: ED 22:02 → PCU 22:33
PROVIDERS: Admitting Provider Family Medicine; Emergency Provider Emergency Medicine; Visit Provider Internal Medicine
DX: I25.119 Atherosclerotic heart disease of native coronary artery with unspecified angina pectoris (principal); F17.210 Nicotine dependence, cigarettes, uncomplicated; H40.50X0 Glaucoma secondary to other eye disorders, unspecified eye, stage unspecified; Z79.899 Other long term (current) drug therapy; I25.82 Chronic total occlusion of coronary artery; E78.5 Hyperlipidemia, unspecified; R94.31 Abnormal electrocardiogram [ECG] [EKG]; I49.1 Atrial premature depolarization
CPT/HCPCS: 36415; 71045; 80048; 80061; 84484; 85025; 85610; 85730; 93005; 93306; 93458; 96360; 96361; 96372; 99152; 99153; 99218; 99285; J7030; Q9957; A4216; C1769; C1894; C8929; G0378; Q9967

== ENCOUNTER → 2022-03-25 | Outpatient (CLI) | payer BC, SELFPAY ==
[2022-03-25 17:07] LABS: Absolute Lymphocyte Count 3.09 X10^3/uL (0.83-4.51); Absolute Neutrophil Count 2.6 X10^3/uL (2.0-7.7); Basophil# 0.04 X10^3/uL; Basophil% 0.6 % (0-1); Eosinophil# 0.13 X10^3/uL; Hematocrit 44.9 % (40-54); Hemoglobin 14.2 g/dL (13.0-16.5); Lymphocyte # 3.09 X10^3/ul (0.83-4.51); Lymphocyte % 48.1 % (19-41); Mean Corp Hgb Conc 31.6 g/dL (32-36); Mean Corpuscular Hgb 28.6 pg (27.0-32.0); Mean Corpuscular Volume 90.5 fL (80-94); Mean Platelet Vol. 11.1 fl (6.2-12.0); Monocyte# 0.57 X10^3/uL; Monocyte% 8.9 % (0-10); NRBC Flagged by Analyzer 0 % (0-5); Neutrophil # 2.58 X10^3/uL (2.7-7.7); Neutrophil % 40.2 % (47-70); Platelet Count 234 K/mm3 (150-450); RBC Distribution Width SD 53.2 fl (35.1-43.9); Red Blood Count 4.96 M/mm3 (4.6-6.2); White Blood Count 6.4 K/mm3 (4.4-11.0)
== END | disposition home or self-care (01) ==
LOC: LAB 14:57
PROVIDERS: Referring Provider Nurse Practitioner Gerontology; Visit Provider Nurse Practitioner Gerontology
DX: R53.83 Other fatigue (principal)
CPT/HCPCS: 36415; 85025

== ENCOUNTER → 2022-03-30 | Outpatient (CLI) | payer BC, SELFPAY ==
--- NOTE | 2022-03-30 13:42 | PCM.CR.HP2 ---
CR - History & Physical - General Arrival date:: 03/30/22 Arrival time:: 13:42 Date of Referral:: 03/25/22 Date of CR Evaluation:: 03/30/22 Referring Physician: Dr. Thom Ritter Primary Diagnosis: CABG - History of Present Cardiac Event Onset Date: Enter Onset Date of cardiac illnesses in Comment field below Coronary Artery Bypass Graft:: Yes - 11/24/2021 - Sleep Disorder Evaluation Hx of Sleep Apnea: No Do you snore loudly (louder than talking or can be heard through closed doors)?: Yes Do you often feel tired/ fatigued/ sleepy during daytime?: No Has anyone observed you stop breathing during sleep?: No History of Hypertension (for STOP score): No STOP Results: Negative - Medications Home Medications: Ambulatory Orders Medication Instructions Recorded brimonidine 0.2 % eye drops 1 drp LEFT EYE BID 11/19/21 timolol maleate 0.5 % eye drops 1 drp LEFT EYE BID 11/19/21 aspirin 325 mg tablet 325 mg PO DAILY 12/24/21 atorvastatin 80 mg tablet 80 mg PO QHS #90 tabs 03/25/22 docusate sodium 100 mg capsule 100 mg PO DAILY 03/25/22 metoprolol tartrate 25 mg tablet 25 mg PO BID #180 tabs 03/25/22 - Allergies Allergies/Adverse Reactions: Allergies No Known Allergies Allergy (Verified 03/25/22 14:22) Advanced Directives - Advanced Directives Power of Access Services Assistant: No Living Will: No Advance Directives Information Provided: No Advance Directives on File: No DNR Order?:: No Past Medical History - Covid-19 Screening Fever: No Unexplained muscle aches: No Current respiratory symptoms: No Upper respiratory infections symptoms: No Gastro-intestinal symptoms: No Sdq-Pahi-Gjzipy symptoms: No Has tested positive for COVID-19 in last 30 days: No Had contact w/person w/symptoms or Covid-19 (+) last 14 days: No Has High Risk Exposures ID'd by Health dept/Inf Control team: No 65 years or older:: No Lives in Assisted Living facility:: No Has a chronic lung disease or moderate to severe asthma:: No Has a serious heart condition:: Yes Immunocompromised:: No Severely obese (Body Mass Index of 40 or higher):: No Diabetic:: No Has chronic kidney disease undergoing dialysis:: No Has liver disease:: No - Past Medical Illness Medical History: Past Medical History (Last Reviewed 03/25/22 @ 14:21 by Cherelle Coyne LEAD NETWORK ARCHITECT, LEAD NETWORK ARCHITECT-C) 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 Tobacco abuse Z72.0 - Past Surgical History Surgical History: Past Surgical History (Last Reviewed 03/25/22 @ 14:21 by Cherelle Coyne NP, LEAD NETWORK ARCHITECT-C) H/O coronary artery bypass surgery Onset Date: 11/24/21 Z95.1 CABG x 3: [facility], Sequential SVG OM2 and RPDA 11/24/2021 History of left heart catheterization Onset Date: 11/22/21 Z98.890 Hx of artificial lens replacement Z96.1 - Family History Summary Family History: Family History (Last Reviewed 03/25/22 @ 14:21 by Cherelle Coyne NP, LEAD NETWORK ARCHITECT-C) Father Cancer Breast cancer Social History - Smoking History Smoking Status: Former smoker Years Smokin Packs Smoked per Day: 1.5 Hx Smoking Cessation Date: 11/19/21 Hx Tobacco Use: Yes - reformed - Alcohol Use Alcohol Usage: Yes - 1 beer a night - Occupation Occupation (List type of work in comments):: Employed Hours worked per day:: 9 - Hobbies, Recreation, Social Activities Hobbies: Other - hunting Recreational Activities: I am able to engage in all my recreational activities Social Environment - Status Marital Status: - Current Living Arrangements Living Environment:: Family - Children How many children do you have?: 1 Do any of your children live nearby?: No - Safety Do you feel safe in your surroundings?: Yes - Assistance Do you need any assistance at home?: none Review of Systems - Review of Systems Hints: Right click = Denies (Slash). Left click = Reports (Fleming) Review of Present Symptoms: Reports: Operative Discomfort - incisional, Angina - unsure, Dizziness/Lightheadedness, Fatigue, Heart Arrhythmia/Irregularities, Appetite - Normal, Appetite - Special Diet, Sleep - Normal. Denies: Shortness of Breath at Rest, Shortness of Breath with Exertion, PVD, Wound Healing, Sexual Changes - Pain Is Patient Pain Free?: No Pain Location: other - incisional Pain Level: 10/28 Risk Factor Assessment - Vital Signs Pulse Ox: 98 Blood Pressure: 116/78 - Pulse Pulse Rate: 63 Pulse Rhythm: Regular - Stress Stress: Work-related - Diabetes Nutrition Referral for Diabetes: No - Obesity Height: 5 ft 7 in Weight:: 84.368 kg Weight in Pounds: 186.0 lbs Body Mass Index (BMI): 29.1 Nutritional Referral for Obesity: No - Physical Inactivity Physical Inactivity: Reg Exercise 30 min/day - walking - Risk Stratification Risk Guidelines: Moderate Risk: Risk Factor for Dyslipidemia, Risk Factor for Diabetes, Risk Factor for Obesity, Risk Factor for Hypertension, Risk Factor for Sedentary Lifestyle, Risk Factor for Depression, Highest Risk: Risk Factor for Smoking - Family History Family History: Family History (Last Reviewed 03/25/22 @ 14:21 by Cherelle Coyne NP, LEAD NETWORK ARCHITECT-C) Father Cancer Motivation - Motivation to Participate On a scale of 1 to 10, how prepared are you to commit to attending program?: 10 What do you see as barriers to successfully being able to complete the program?: none What do you see as the benefits of succesfully completing the program? In other words, what do you hope to get out of participating in the program?: improved health Are there issues you are dealing with that will interfere with completing the program?: no Do you have a spouse or signficant other, family or friends who will help support you to complete the program?: yes
[2022-03-30 14:35] VITALS: BP 116/78; PULSE 63; O2SAT 98; BMI 29.1
--- NOTE | 2022-03-30 14:35 | CR.ITP_ITS ---
Diagnosis - General Information Admitting Diagnosis: CABG Personal Learning Style:: Audio/Visual, Demonstration, Group, Individual Preference, Written Stage of change r/t lifestyle modifications:: Contemplation Gave educational material for:: Treating Heart Disease, Emotions & Heart Disease, Stress Management & Relaxation, Sleep Disorders & Heart Disease, How The Heart Works, What it means to have Heart Disease, How Coronary Artery Disease is Diagnosed, Heart Procedures, What Heart Medications Do, Risk Factors & Modifications, Living an Active Life, Nutrition - Education/Goals Cardiac Rehabilitation Goals: 1. Maintain the individual as the primary focus of care. 2. To improve the patient's quality of life. 3. Identification of cardiac risk factors and provide cardiac risk factor management. 4. Enhance the psychosocial status of the patient. 5. Reconditioning enough to allow the patient to resume customary activities. 6. Control symptoms of cardiac disease Personal Goals: Initial Assessment: Improve energy level, Participate in home exercise program, Get back to work, or to resume activities faster, Improve muscle strength and endurance, Improve diet and eating habits (eat healthier) Scale for measuring improvement of personal goals: Enter appropriate number in Comments. 2 = Unchanged. 3 = Slightly Better. 4 = Moderate Improvement. 5 = Met my Goal - Diagnosis & Disease Process Outcomes/Goals: Pt IDs own risk factors & lifestyle modifications by Session 10, Verbalizes symptoms of angina & response by session 3., Pt independently manages, Other Additional Outcomes/Goals: Plan/Interventions: Assist Pt to ID & engage in lifestyle modification to reduce CVD risk, Instruct on individual risk factors, Review symptoms of angina & emergency actions, Review secondary diagnosis & identify educational needs., Other see comment 30 day Reassessments:: Not Met 30 day Reassessments:: Not Met 30 day Reassessments:: Not Met 30 day Reassessments:: Not Met Final Reassessments:: Not Met - Safety Referral to Physical Therapy: No Referral to [facility] Case Management: No Fall Risk Assessed:: Yes Assistive Devices:: None Exercise - Initial Assessment - Visit Date of Eval: 03/30/22 - initial eval Mets: Pre-: >3 METS for 30 minutes by discharge, >5 METS for 30 minutes by discharge, >7 METS for 30 minutes by discharge, Unable to meet goal due to: (see comment below) - Physician Prescribed Exercise Modalities: Treadmill, Rower, Airdyne, NuStep, SciFit, Lateral Bookbinder Apprentice Frequency: 3x/week for 12 weeks [36 sessions] Intensity: 60-80% of age predicted maximum heart rate reserve Current METSs:: 4 Target Heart Rate:: 109-143 Resting Blood Pressure: 116/78 - Outcomes & Goals Goals:: Verbalizes understanding of THR, RPE & goal METS by session 6, Documents in home exercise log/reports 30 min aerobic 5 day/wk by DC, Demonstrates accurate pulse taking by DC, Other additional outcome/goals: see below - Intervention & Plan Exercise Program Goals: Instruct on personal THR & RPE, Instruct on MET level & personal MET goal, Show patient to take own pulse /validate performance until accurate, Instruct on home exercise, Other additional plan/int - Physical Activity Home Exercise Physical Activity - Home Exercise: Safe Exercise, Warm-up, Self-monitoring, Cool-Down, Home Exercise > 30 min Daily, Sitting Time <3 hours/daily - Outcomes & Goals Outcomes/Goals: Demonstrates correct Warm-up/exercise Cool-Down (S3) if = 2.5 METs, Verbalizes symptoms of exercise intolerance by Session 3 (S3), Demonstrate safe equipment use (S3) & follows exercise prescrition (6), Other: See below - Intervention & Plan Plan/Intervention: Instruct warm-up & cool-down if exercising at > 2 METs, Instruct on symptoms of exercise intolerance & actions to take, Instruct & monitor on saf, Assess intial functional capacity & safety risk, Other See below Nutrition - Initial Assessment - Program Goals Nutrition Program Goals: LDL <100 optimal. 100 - 129 Near optimal. 130 - 159 Borderline High. 160 - 189 High. Total Cholesterol <200 desirable. 200 - 239 Borderline High. >/= 240 High. HDL < 40 Low >/=60 High. Triglycerides <150 desirable. <199 optimal. VlDL 5 - 40. HgbA1C <7%. BMI <25 Patient has diagnosis of Hyperlipidemia (ICD E78)?: No - Visit Date of Assessment:: 03/30/22 - inital eval - Cholesterol/Lipids Determine presence & major risk factors that modify LDL goal: Cigarette smoking, Hypertension or hypertensive medication, Low HDL cholesterol <40 mg/dL*, Family history of premature CHD in Male < 55 years: female <65 yearsFa, Age men > 45 years; women >/= 55 years Outcomes/Goals: Pt IDs own risk factors & lifestyle modifications by Session 10, Verbalizes symptoms of angina & response by session 3., Pt independently manages, Other Additional Outcomes/Goals: Intervention/Plan: Advocate for lipid panel cholesterol medication if applicable, Instruct on personal lipid levels & lipid goals/NCEP guidelines, Instruct on cholesterol, Other additional plan/int Referral to dietitian:: No - Diabetes (Other Core Measures) Diabetes Type: Not Applicable - Weight Mgt (Other Care) Height: 5 ft 7 in Weight:: 84.368 kg BMI: 29.1 Diagnosis Overweight/Obesity BMI> 30% ICD-10 E66: No Diagnosis High BMI/Morbid Obesity BMI> 35% ICD-10 Z68: No Outcomes/Goals: Pt sets, maintains & shows weight loss goal & trend during rehab, Other additional outcomes/goals Intervention/Plan: Instruct on ideal BMI & set weight loss goal w/patient, Assist pt to ID & incorporate diet changes for weight loss by S9, Refer to Structured Weight Loss program as appropriate, Encourage goal of using 250- 300dcal per session for weight loss, Other additional plan/interventions - Healthy Eating Habits Will attend diet classes:: Yes Outcomes/Goals:: Consume diet rich in vegs,fruits,whole grain/high fiber,fish,lean meat, Limit sat/trans fats,cholesterol & added salts & sugars, Other additional outcome/goals: Intervention/Plan:: Assess current eating habits, Other Additional plan/interventions - Education Gave educational materials for:: Signs & symptoms of hypoglycemia, Signs & symptoms of hyperglycemia, Relate diabetes to coronary artery disease, Healthy eating Nutrition - 30-Day Assessment Nutrition - 60-Day Assessment Nutrition - 90-Day Assessment Nutrition - Final Assessment Medical - Initial Assessment - Visit Date of Eval: 03/30/22 - initial eval - Medication Compliance Preventative Medication(s):: Aspirin, Statin/lipid, Beta shania H/O mental health issues: depression, anxiety, or addiction?: No Doesn?t believe in the benefits of treatment?: No Believes medications are unnecessary or harmful?: No Has a concern about medication side effects?: No Expresses concern over the cost of medications?: No Outcomes/Goals: Verbalizes medications,desired effect & common side effects @ DC, Pt self-reports following medication regimen, Keeps card in wallet w/medications listed by DC, Other additional outcome/goals: Interventions/plans: Instruct on medication effects & side effects, Review medication list w/patient every two weeks, Instruct importance of taking meds as ordered & assist problem solving, Other additional - Hypertension Hypertension Diagnosis:: Not Applicable Resting Blood Pressure:: 116/78 [place] [employer] Hypertension Guidelines: [place] [employer] Hypertension Guidelines. Normal BP Less than 120/80. Elevated BP 120/80. Hypertension Stage 1: BP 130-139/80-89. Hypertesnion Stage 2: BP 140 or higher/90 or higher. Hypertension Crisis: BP higher than 180/120 Outcomes/Goals: Able to verbalize/achieve optimal blood pressure <130/80, Incorporates diet changes & exercise for blood pressure control by DC, Other additional outcomes/goals Interventions/plan: Instruct on optimal blood pressure, hypertension & medications, Instruct on effects of sodium, alcohol, stress, exercise &hypertension, Other additional plan/interventions - Tobacco Cessation Referral Smoking Cessation Referral:: No Individual Education/Counseling:: No Education Schedule Given:: Yes Medical- 30-Day Assessment Medical- 60-Day Assessment Medical- 90-Day Assessment Medical - Final Assessment Psychosocial - Initial Assess - VIsit Date of Eval: 03/30/22 - initial eval - Outcomes/Goals: See list Psychosocial Outcomes/Goals:: ID's personal stressors & 2 strategies to manage stress by discharge, Other Additional outcome/goals: - Intervention/Plan: See List Interventions/Plan:: Assess stressors,coping strategies & signs of derpression on admission, Instruct/assist pt to develop coping & personal stress Mgt strategies, Refer to Behavioral Health if appropriate, Refer to Physician if appropriate, Instruct patient to recognize signs & symptoms of depression, Instruct patient to recog, Other additional plan/intervention Psychosocial - 30-Day Assess Psychosocial - 60-Day Assess Psychosocial - 90-Day Assess Psychosocial - Final Assessmen Patient Health Questionnaire Initial Assessment 1. Little interest or pleasure in doing things: Not at all 2. Feeling down, depressed, or hopeless: Not at all 3. Trouble falling or staying asleep, or sleeping too much: Not at all 4. Feeling tired or having little energy: Several days 5. Poor appetite or overeating: Not at all 6. Feeling bad about yourself -- or that you are a failure or have let yourself or your family down: Not at all 7. Trouble concentrating on things, such as reading the newspaper or watching television: Not at all 8. Moving or speaking so slowly that other people could have noticed. Or the opposite - being so fidgety or restless that you have been moving around a lot more than usual: Not at all 9. Thoughts that you would be better off , or of hurting yourself in some way: Not at all How difficult have these problems made it for you to do your work, take care of things at home, or get along with other people?: Not difficult at all Total Score: 1 MATILDE-Q SV Test - Statements CAD is a disease of the arteries in the heart: False Examples of risk factors for heart disease: True Angina is chest pain or discomfort: I Don't Know The benefits of resistance training include: True Eating more meat and dairy products: False Anti-platelet medications such as aspirin are important: True The only effective way to manage stress: False An exercise warm-up slowly increases heart rate: I Don't Know Prepared, processed foods usually have high sodium: True Depression is common after a heart attack: I Don't Know The statin medications lower cholesterol: True To control blood pressure, lower the amount of sodium: True If someone gets chest discomfort during walking: False Transfats are partially hydrogenated vegetable oils: True Sleep apnea that is not treated increases the risk: False To control cholesterol, one should become a vegetarian: False Someone knows if he/she is exercising at the right level: True Diabetes cannot be prevented with exercise & health eating: False Stress is a large risk for heart attack: True A diet that can help lower blood pressure is rich in: True - Total Score Total Correct Responses: 17 Self-Efficacy Initial Assessment We would like to know how confident you are in doing certain activities. Please select your confidence level for:: Select your confidence level for the following using the scale 1-10 where 1 is not at all confident and 10 is totally confident. Your score is the average of all 6 responses. Fatigue: How confident are you that you can keep the fatigue caused by your disease from interfering with the things you want to do? Select Number: 6 Physical Discomfort or Pain: How confident are you that you can keep the physical discomfort or pain of your disease from interfering with the things you want to do? Select Number: 5 Emotional Distress: How confident are you that you can keep the emotional dist ress caused by your disease from interfering with the things you want to do? Select Number: 7 Other Symptoms or Health Problems: How confident are you that you can keep other symptoms or health problems from interfering with the things you want to do? Select Number: 6 Different Tasks and Activities: How confident are you that you can do the different tasks and activities needed to manage your health condition so as to reduce your need to see a doctor? Select Number: 7 Medication: How confident are you that you can do things other than just taking medication to reduce how much your illness affects your everyday life? Select Number: 7 Total Score:: 6 Nutrition Survey - Nutrition Survey Initial Have you lost >10 lbs over the past 2 months without trying?: No Are you following a special diet at home for diabetes, low fat, or low salt?: No Are you interested in meeting with a dietitian for help understanding your diet?: No Do you eat less than 3 meals a day?: Yes Do you eat fatty meats (montiel, sausage, ribs, etc), fried foods, desserts, large amounts of salad dressings, margarine, butter, or cheese most days?: Yes Do you have food allergies? [Enter types in comment field]: No Do you eat in restaurants more than 3 times a week?: No Do you season food with salt, seasoning salt, or garlic salt?: No Do you used canned, boxed, frozen meals, or soups, seasoning packets?: Yes Total Score:: 3
[2022-03-30 14:45] VITALS: BP 116/78; BMI 29.1
== END | disposition home or self-care (01) ==
PROVIDERS: Referring Provider Internal Medicine Cardiovascular Disease; Visit Provider Internal Medicine Cardiovascular Disease
DX: I25.10 Atherosclerotic heart disease of native coronary artery without angina pectoris (principal); Z95.1 Presence of aortocoronary bypass graft; Z87.891 Personal history of nicotine dependence; Z79.82 Long term (current) use of aspirin

== ENCOUNTER 2022-04-15 15:30 | Outpatient (RCR) | payer BC, SELFPAY ==
[2022-03-30 14:45] VITALS: BMI 29.1
== END 2022-04-17 23:59 ==
LOC: CR 15:30
PROVIDERS: Referring Provider Internal Medicine Cardiovascular Disease; Visit Provider Internal Medicine Cardiovascular Disease
DX: I25.10 Atherosclerotic heart disease of native coronary artery without angina pectoris (principal); Z95.1 Presence of aortocoronary bypass graft
CPT/HCPCS: 93798

== ENCOUNTER 2022-05-18 15:30 | Outpatient (RCR) | payer BC, SELFPAY ==
[2022-03-30 14:45] VITALS: BMI 29.1
--- NOTE | 2022-04-29 12:13 | CR.ITP_ITS ---
Diagnosis - General Information Admitting Diagnosis: CABG Exercise - 30-day Assessment - Visit Date of Eval: 04/29/22 Session #:: 11 - Physician Prescribed Exercise Modalities: Treadmill, Rower, Airdyne, NuStep Frequency: 3x/week for 12 weeks [36 sessions] Intensity: 60-80% of age predicted maximum heart rate reserve Current METSs:: 4.5 Target Heart Rate:: 109-143 Current RPE:: 13-14 Maximum Excercise HR:: 108 Resting Blood Pressure: 94/60 Maximum Exercise Blood Pressure: 120/74 EKG Type: NSR to ST - Outcomes & Goals Goals:: Verbalizes understanding of THR, RPE & goal METS by session 6, Documents in home exercise log/reports 30 min aerobic 5 day/wk by DC, Demonstrates accurate pulse taking by DC, Other additional outcome/goals: see below - Intervention & Plan Exercise Program Goals: Instruct on personal THR & RPE, Instruct on MET level & personal MET goal, Show patient to take own pulse /validate performance until accurate, Instruct on home exercise, Other additional plan/int - 30-day Reassessments 30 day Reassessments:: Progressing - Physical Activity Home Exercise Physical Activity - Home Exercise: Safe Exercise, Warm-up, Self-monitoring, Cool-Down, Home Exercise > 30 min Daily, Sitting Time <3 hours/daily - Outcomes & Goals Outcomes/Goals: Demonstrates correct Warm-up/exercise Cool-Down (S3) if = 2.5 METs, Verbalizes symptoms of exercise intolerance by Session 3 (S3), Demonstrate safe equipment use (S3) & follows exercise prescrition (6), Other: See below - Intervention & Plan Plan/Intervention: Instruct warm-up & cool-down if exercising at > 2 METs, Instruct on symptoms of exercise intolerance & actions to take, Instruct & monitor on saf, Assess intial functional capacity & safety risk, Other See below - 30-day Reassessments 30 day Reassessments:: Progressing Nutrition - Initial Assessment Nutrition - 30-Day Assessment - Program Goals Nutrition Program Goals: LDL <100 optimal. 100 - 129 Near optimal. 130 - 159 Borderline High. 160 - 189 High. Total Cholesterol <200 desirable. 200 - 239 Borderline High. >/= 240 High. HDL < 40 Low >/=60 High. Triglycerides <150 desirable. <199 optimal. VlDL 5 - 40. HgbA1C <7%. BMI <25 Patient has diagnosis of Hyperlipidemia (ICD E78)?: No - Visit Date of Assessment:: 04/29/22 Session #:: 11 - Cholesterol/Lipids Determine presence & major risk factors that modify LDL goal: Cigarette smoking, Hypertension or hypertensive medication, Low HDL cholesterol <40 mg/dL*, Family history of premature CHD in Male < 55 years: female <65 yearsFa, Age men > 45 years; women >/= 55 years Outcomes/Goals: Pt IDs own risk factors & lifestyle modifications by Session 10, Verbalizes symptoms of angina & response by session 3., Pt independently manages, Other Additional Outcomes/Goals: Intervention/Plan: Advocate for lipid panel cholesterol medication if applicable, Instruct on personal lipid levels & lipid goals/NCEP guidelines, Instruct on cholesterol, Other additional plan/int - Diabetes (Other Core Measures) Diabetes Type: Not Applicable - Weight Mgt (Other Care) Height: 5 ft 7 in Weight:: 85.729 kg BMI: 29.6 Outcomes/Goals: Pt sets, maintains & shows weight loss goal & trend during rehab, Other additional outcomes/goals Intervention/Plan: Instruct on ideal BMI & set weight loss goal w/patient, Assist pt to ID & incorporate diet changes for weight loss by S9, Refer to Structured Weight Loss program as appropriate, Encourage goal of using 250- 300dcal per session for weight loss, Other additional plan/interventions 30 day Reassessments:: Progressing - Healthy Eating Habits Will attend diet classes:: Yes Outcomes/Goals:: Consume diet rich in vegs,fruits,whole grain/high fiber,fish,lean meat, Limit sat/trans fats,cholesterol & added salts & sugars, Other additional outcome/goals: Intervention/Plan:: Assess current eating habits, Other Additional plan/interventions 30-day Reassessments:: Progressing - Education Gave educational materials for:: Signs & symptoms of hypoglycemia, Signs & symptoms of hyperglycemia, Relate diabetes to coronary artery disease, Healthy eating Nutrition - 60-Day Assessment Nutrition - 90-Day Assessment Nutrition - Final Assessment Medical - Initial Assessment Medical- 30-Day Assessment - Visit Date of Eval: 04/29/22 Session #:: 11 - Medication Compliance Preventative Medication(s):: Aspirin, Statin/lipid, Beta shania H/O mental health issues: depression, anxiety, or addiction?: No Doesn?t believe in the benefits of treatment?: No Believes medications are unnecessary or harmful?: No Has a concern about medication side effects?: No Expresses concern over the cost of medications?: No Outcomes/Goals: Verbalizes medications,desired effect & common side effects @ DC, Pt self-reports following medication regimen, Keeps card in wallet w/medications listed by DC, Other additional outcome/goals: Interventions/plans: Instruct on medication effects & side effects, Review medication list w/patient every two weeks, Instruct importance of taking meds as ordered & assist problem solving, Other additional 30-day Reassessments:: Progressing - Tobacco Use Tobacco Use: Non-smoker - pt stopped smoking - Hypertension Hypertension Diagnosis:: Not Applicable Resting Blood Pressure:: 94/60 [place] [employer] Hypertension Guidelines: [place] [employer] Hypertension Guidelines. Normal BP Less than 120/80. Elevated BP 120/80. Hypertension Stage 1: BP 130-139/80-89. Hypertesnion Stage 2: BP 140 or higher/90 or higher. Hypertension Crisis: BP higher than 180/120 Peak Exercise Blood Pressure:: 120/74 Outcomes/Goals: Able to verbalize/achieve optimal blood pressure <130/80, Incorporates diet changes & exercise for blood pressure control by DC, Other additional outcomes/goals Interventions/plan: Instruct on optimal blood pressure, hypertension & medications, Instruct on effects of sodium, alcohol, stress, exercise &hypertension, Other additional plan/interventions 30 day Reassessments:: Progressing - Tobacco Cessation Referral Smoking Cessation Referral:: No Individual Education/Counseling:: No Education Schedule Given:: Yes Medical- 60-Day Assessment Medical- 90-Day Assessment Medical - Final Assessment Psychosocial - Initial Assess Psychosocial - 30-Day Assess - VIsit Date of Eval: 04/29/22 Session #:: 11 History of previous Mental disease:: No - 30-day Reassessments: 30 day Reassessments:: Progressing Psychosocial - 60-Day Assess Psychosocial - 90-Day Assess Psychosocial - Final Assessmen Patient Health Questionnaire 30-Day Re-eval Assessment 1. Little interest or pleasure in doing things: Not at all 2. Feeling down, depressed, or hopeless: Not at all 3. Trouble falling or staying asleep, or sleeping too much: Not at all 4. Feeling tired or having little energy: Several days 5. Poor appetite or overeating: Not at all 6. Feeling bad about yourself -- or that you are a failure or have let yourself or your family down: Not at all 7. Trouble concentrating on things, such as reading the newspaper or watching television: Not at all 8. Moving or speaking so slowly that other people could have noticed. Or the opposite - being so fidgety or restless that you have been moving around a lot more than usual: Not at all 9. Thoughts that you would be better off , or of hurting yourself in some way: Not at all How difficult have these problems made it for you to do your work, take care of things at home, or get along with other people?: Not difficult at all Total Score: 1 Self-Efficacy 30-Day Re-eval Assessment We would like to know how confident you are in doing certain activities. Please select your confidence level for:: Select your confidence level for the following using the scale 1-10 where 1 is not at all confident and 10 is totally confident. Your score is the average of all 6 responses. Fatigue: How confident are you that you can keep the fatigue caused by your disease from interfering with the things you want to do? Select Number: 6 Physical Discomfort or Pain: How confident are you that you can keep the physical discomfort or pain of your disease from interfering with the things you want to do? Select Number: 5 Emotional Distress: How confident are you that you can keep the emotional distress caused by your disease from interfering with the things you want to do? Select Number: 7 Other Symptoms or Health Problems: How confident are you that you can keep other symptoms or health problems from interfering with the things you want to do? Select Number: 6 Different Tasks and Activities: How confident are you that you can do the different tasks and activities needed to manage your health condition so as to reduce your need to see a doctor? Select Number: 7 Medication: How confident are you that you can do things other than just taking medication to reduce how much your illness affects your everyday life? Select Number: 7 Total Score:: 6 Nutrition Survey
[2022-04-29 12:20] VITALS: BP 120/74; BP 94/60; BMI 29.6
== END 2022-05-18 23:59 ==
LOC: CR 15:30
PROVIDERS: Referring Provider Internal Medicine Cardiovascular Disease; Visit Provider Internal Medicine Cardiovascular Disease
DX: I25.10 Atherosclerotic heart disease of native coronary artery without angina pectoris (principal); Z95.1 Presence of aortocoronary bypass graft
CPT/HCPCS: 93798

== ENCOUNTER 2022-05-27 15:30 | Outpatient (RCR) | payer BC, SELFPAY ==
[2022-04-29 12:20] VITALS: BMI 29.6
[2022-05-19 00:39] VITALS: BP 120/74; BP 94/60
== END 2022-06-17 23:59 ==
LOC: CR 15:30
PROVIDERS: Referring Provider Internal Medicine Cardiovascular Disease; Visit Provider Internal Medicine Cardiovascular Disease
DX: I25.10 Atherosclerotic heart disease of native coronary artery without angina pectoris (principal); Z95.1 Presence of aortocoronary bypass graft
CPT/HCPCS: 93798

== ENCOUNTER 2022-06-20 10:08 | Outpatient (RCR) | payer BC, SELFPAY ==
[2022-04-29 12:20] VITALS: BMI 29.6
[2022-06-18 01:31] VITALS: BP 120/74; BP 94/60
== END 2022-07-18 23:59 ==
LOC: CR 10:08
PROVIDERS: Referring Provider Internal Medicine Cardiovascular Disease; Visit Provider Internal Medicine Cardiovascular Disease
DX: I25.10 Atherosclerotic heart disease of native coronary artery without angina pectoris (principal); Z95.1 Presence of aortocoronary bypass graft
CPT/HCPCS: 93798

== ENCOUNTER → 2022-09-05 | Outpatient (CLI) | payer BC, SELFPAY ==
[2022-04-29 12:20] VITALS: BMI 29.6
[2022-09-05 12:16] LABS: Absolute Lymphocyte Count 2.93 X10^3/uL (0.83-4.51); Absolute Neutrophil Count 3.8 X10^3/uL (2.0-7.7); Basophil# 0.05 X10^3/uL; Basophil% 0.7 % (0-1); Eosinophil# 0.14 X10^3/uL; Eosinophils% 1.8 % (0-5); Hematocrit 42.6 % (40-54); Hemoglobin 14.1 g/dL (13.0-16.5); Lymphocyte # 2.93 X10^3/ul (0.83-4.51); Lymphocyte % 38.3 % (19-41); Mean Corp Hgb Conc 33.1 g/dL (32-36); Mean Corpuscular Volume 93.6 fL (80-94); Mean Platelet Vol. 10.4 fl (6.2-12.0); Monocyte# 0.69 X10^3/uL; NRBC Flagged by Analyzer 0 % (0-5); Neutrophil # 3.84 X10^3/uL (2.7-7.7); Neutrophil % 50.1 % (47-70); Platelet Count 226 K/mm3 (150-450); RBC Distribution Width CV 14.6 % (11.6-14.6); RBC Distribution Width SD 50.4 fl (35.1-43.9); Red Blood Count 4.55 M/mm3 (4.6-6.2); White Blood Count 7.7 K/mm3 (4.4-11.0)
[2022-09-05 12:43] LABS: AST(SGOT) 20 U/L (15-37); Alanine Aminotransfer ALT/SGPT 22 U/L (16-61); Albumin, Serum 3.6 g/dL (3.2-5.0); Alkaline Phosphatase 74 U/L (45-117); Anion Gap 4 (5-15); BUN 11 mg/dL (7-18); BUN/Creat Ratio 13.8 RATIO (10-20); Bilirubin, Direct 0.12 mg/dL (0.00-0.30); Calcium,Total 8.7 mg/dL (8.5-10.1); Chloride 107 mmol/L (98-107); Cholesterol 124 mg/dL (200); EST Glomerular Filtration Rate 108 mL/min (>60); Est Glom Filt Rate - Afr Amer 130 mL/min (>60); Globulin 3.8 g/dL (2.2-4.2); Glucose 88 mg/dL (74-106); High Density Lipoprotein 62 mg/dL; Potassium 4.1 mmol/L (3.5-5.1); Protein, Total 7.4 g/dL (6.4-8.2); Sodium Level 139 mmol/L (136-145); Thyroid Stim Hormone (TSH) 1.14 uIU/mL (0.358-3.74); Triglycerides 53 mg/dL; Very Low Density Lipoprotein 11 mg/dL (5-40)
== END | disposition home or self-care (01) ==
LOC: LAB 11:44
PROVIDERS: Referring Provider Nurse Practitioner Gerontology; Visit Provider Nurse Practitioner Gerontology
DX: R53.83 Other fatigue (principal); I25.10 Atherosclerotic heart disease of native coronary artery without angina pectoris
CPT/HCPCS: 36415; 80048; 80061; 80076; 84443; 85025

== ENCOUNTER → 2024-01-27 | Outpatient (CLI) | payer OTHER, SELFPAY ==
[2022-04-29 12:20] VITALS: BMI 29.6
[2024-01-27 10:10] LABS: AST(SGOT) 29 U/L (15-37); Alanine Aminotransfer ALT/SGPT 37 U/L (16-61); Albumin, Serum 3.7 g/dL (3.2-5.0); Alkaline Phosphatase 77 U/L (45-117); Cholesterol 130 mg/dL (200); Globulin 3.9 g/dL (2.2-4.2); High Density Lipoprotein 64 mg/dL; Protein, Total 7.6 g/dL (6.4-8.2); Triglycerides 42 mg/dL; Very Low Density Lipoprotein 8 mg/dL (5-40)
== END | disposition home or self-care (01) ==
PROVIDERS: Referring Provider Nurse Practitioner Gerontology; Visit Provider Nurse Practitioner Gerontology
DX: I25.10 Atherosclerotic heart disease of native coronary artery without angina pectoris (principal)
CPT/HCPCS: 36415; 80061; 80076

== ENCOUNTER → 2024-10-28 | Outpatient (CLI) | payer OTHER, SELFPAY ==
[2022-04-29 12:20] VITALS: BMI 29.6
--- NOTE | 2024-10-28 12:45 | RAD_ITS ---
EXAM: XR Chest, 2 Views CLINICAL INDICATION: TECHNIQUE: Frontal and lateral views of the chest. COMPARISON: No relevant prior studies available. FINDINGS: LUNGS AND PLEURAL SPACES: Unremarkable. No consolidation. No pneumothorax. HEART: Unremarkable. No cardiomegaly. MEDIASTINUM: Unremarkable. Normal mediastinal contour. BONES/JOINTS: Unremarkable. No acute fracture. RAD/Chest PA and Lateral IMPRESSION: No acute cardiopulmonary process. Reading [facility]
== END | disposition home or self-care (01) ==
LOC: RAD 12:37
PROVIDERS: Referring Provider Nurse Practitioner Family; Visit Provider Nurse Practitioner Family
DX: J18.9 Pneumonia, unspecified organism (principal)
CPT/HCPCS: 71046

== ENCOUNTER → 2025-01-02 | Outpatient (CLI) | payer OTHER, SELFPAY ==
[2024-11-14 09:13] VITALS: BMI 29.6
[2025-01-02 13:01] LABS: Absolute Lymphocyte Count 2.53 X10^3/uL (0.83-4.51); Basophil# 0.04 X10^3/uL; Basophil% 0.6 % (0-1); Eosinophil# 0.07 X10^3/uL; Hemoglobin 14.1 g/dL (13.0-16.5); Lymphocyte # 2.53 X10^3/ul (0.83-4.51); Mean Corp Hgb Conc 32.8 g/dL (32-36); Mean Corpuscular Hgb 30.9 pg (27.0-32.0); Mean Corpuscular Volume 94.1 fL (80-94); Mean Platelet Vol. 11.2 fl (6.2-12.0); Monocyte# 0.62 X10^3/uL; Monocyte% 8.6 % (0-10); NRBC Flagged by Analyzer 0 % (0-5); Neutrophil # 3.95 X10^3/uL (2.7-7.7); Neutrophil % 54.5 % (47-70); Platelet Count 231 K/mm3 (150-450); RBC Distribution Width CV 14.6 % (11.6-14.6); RBC Distribution Width SD 50.4 fl (35.1-43.9); Red Blood Count 4.57 M/mm3 (4.6-6.2); White Blood Count 7.2 K/mm3 (4.4-11.0)
[2025-01-02 13:29] LABS: Cholesterol 131 mg/dL (<=200); High Density Lipoprotein 51 mg/dL; Low Density Lipoprotein Calc. 64 mg/dL; Triglycerides 81 mg/dL; Very Low Density Lipoprotein 16 mg/dL (5-40); cholesterol:hdl ratio screen 2.55
[2025-01-02 14:03] LABS: ALB/GLOB Ratio 1.3 RATIO (0.9-2.4); AST(SGOT) 24 U/L (<=37); Alanine Aminotransfer ALT/SGPT 18 U/L (<=46); Albumin, Serum 4.2 g/dL (3.5-5.0); Alkaline Phosphatase 84 U/L (40-129); Anion Gap 10 (5-15); BUN 11 mg/dL (4-19); BUN/Creat Ratio 15.4 RATIO (10-20); Calcium,Total 9.4 mg/dL (7.6-11.0); Carbon Dioxide 26.9 mmol/L (21.0-32.0); Chloride 102 mmol/L (98-108); Creatinine, Serum 0.74 mg/dL (0.70-1.20); EST Glomerular Filtration Rate 107 (>60); Globulin 3.3 g/dL (2.2-4.2); Glucose 103 mg/dL (70-99); Potassium 4.5 mmol/L (3.3-5.1); Protein, Total 7.5 g/dL (5.9-8.4); Sodium Level 139 mmol/L (133-145); Total Bilirubin 0.42 mg/dL (0.00-1.30)
== END | disposition home or self-care (01) ==
LOC: BIMLAB 10:44
PROVIDERS: Visit Provider Internal Medicine
DX: I10 Essential (primary) hypertension (principal); I25.10 Atherosclerotic heart disease of native coronary artery without angina pectoris
CPT/HCPCS: 36415; 80053; 80061; 85025